=== PATIENT | female | born 1995 | race Caucasian/White ===

== ENCOUNTER 2017-09-08 00:51 | Emergency (ER) | payer MEDICAID ==
[~2017-09-08] VITALS: Ht 180.3 cm; Wt 121.7 kg
[2017-09-08 00:53] VITALS: BP 111/78
[2017-09-08] MEDS ORDERED: LORazepam 1MG TABLET ONE (01:17)
[2017-09-08] MEDS ORDERED: LORazepam 1MG TABLET PO ONE (01:30)
== END 2017-09-08 02:03 | disposition home or self-care (01) ==
LOC: ED 01:45
DX: F41.1 Generalized anxiety disorder (principal); F12.10 Cannabis abuse, uncomplicated; Z88.0 Allergy status to penicillin; Z90.49 Acquired absence of other specified parts of digestive tract
CPT/HCPCS: 99283